=== PATIENT | male | born 2000 | race Caucasian/White ===

== ENCOUNTER 2022-06-22 16:58 | Emergency (ER) | payer MEDICAID ==
[~2022-06-22] VITALS: Ht 185.4 cm; Wt 89.0 kg
[2022-06-22 17:05] VITALS: BP 128/78
[2022-06-22] MEDS ORDERED: BACI28.432 TP (21:42)
[2022-06-22] MEDS ORDERED: CEPH500C2 PO (21:42)
== END 2022-06-22 22:07 | disposition home or self-care (01) ==
LOC: ER 16:58
DX: L60.0 Ingrowing nail (principal)
CPT/HCPCS: 99283